=== PATIENT | male | born 1955 | race African-American/Black ===

== ENCOUNTER 2019-11-21 10:38 | Emergency (ER) | payer SELFPAY ==
--- NOTE | 2019-11-21 12:28 | EDPHYS ---
Physician Documentation [facility] Name: Lokesh Roldan Age: 64 yrs Sex: Male : 1955 Arrival Date: 11/21/2019 Time: 10:39 Bed 13 Private MD: ED Physician Laureen Castro HPI: 11/20 12:05 This 64 yrs old Black Male presents to ER via EMS with complaints of Hernia, Groin Pain.cp 12:05 The patient presents with swelling, of the right inguinal area, tenderness, that is cp moderate, of the right inguinal area. Onset: The symptoms/episode began/occurred 10 year(s) ago, and became worse yesterday. Associated signs and symptoms: Pertinent positives: abdominal pain, Pertinent negatives: dysuria, hematuria, nausea, vomiting. Historical: - Allergies: 10:40 No Known Allergies; sv - PMHx: 10:40 Hernia; Heart Murmur; sv - Immunization history:: Adult Immunizations up to date. - Social history:: Smoking status: . ROS: 12:10 Constitutional: Negative for body aches, chills, fever. cp 12:10 Cardiovascular: Negative for chest pain. cp 12:10 Respiratory: Negative for cough, shortness of breath, wheezing. 12:10 Abdomen/GI: Positive for abdominal pain, Negative for nausea, vomiting, and diarrhea. 12:10 Back: Negative for pain at rest, pain with movement. 12:10 : Positive for right scrotal swelling. 12:10 All other systems are negative. Exam: 12:12 Constitutional: The patient appears in no acute distress, alert, awake, non-toxic, well cp developed, well nourished. 12:12 Head/Face: Normocephalic, atraumatic. cp 12:12 Chest/axilla: Inspection: normal. 12:12 Cardiovascular: Rate: normal. 12:12 Respiratory: the patient does not display signs of respiratory distress, Respirations: normal, no use of accessory muscles, labored breathing, is not present. 12:12 Abdomen/GI: Inspection: abdomen appears normal, Bowel sounds: active, all quadrants, Palpation: soft, in all quadrants, mild abdominal tenderness, in the right lower quadrant and right inguinal area, Hernia: noted in the right inguinal area, incarceration, is not appreciated, tenderness, that is mild. 12:12 Skin: cellulitis, is not appreciated, no rash present. Vital Signs: 10:40 BP 136 / 82; Pulse 82; Resp 16; Temp 97.8; Pulse Ox 100% ; Height 6 ft. 2 in. (187.96 sv cm); MDM: 11:45 Patient medically screened. 12:27 Data reviewed: vital signs, nurses notes, I have discussed the patient's cp presentation/case with the attending Emergency Department Physician; and as a result, I will discharge patient. 12:27 Counseling: I had a detailed discussion with the patient and/or guardian regarding: the cp historical points, exam findings, and any diagnostic results supporting the discharge/admit diagnosis, the need for outpatient follow up, for definitive care, a general surgeon, to return to the emergency department if symptoms worsen or persist or if there are any questions or concerns that arise at home. Response to treatment: the patient's symptoms have markedly improved after treatment. ED course: Hernia reduced. Will discharge to home for continued monitoring and to f/u with general surgery. 11/20 12:26 Order name: Jason Wrap; Complete Time: 12:52 cp Administered Medications: No medications were administered Disposition: 12:40 Chart complete. Disposition: 11/21/19 12:27 Discharged to Home. Impression: Unilateral inguinal hernia, without obstruction or gangrene, recurrent - right, reduced. - Condition is Stable. - Discharge Instructions: Inguinal Hernia, Adult. - Prescriptions for Tramadol 50 mg Oral Tablet - take 1 tablet by ORAL route every 8 hours as needed; 12 tablet. - Medication Reconciliation Form, Thank You Letter, Antibiotic Education, Prescription Opioid Use, Work release form form. - Follow up: Charly Jameson MD; When: 1 - 2 days; Reason: hernia repair. - Problem is an ongoing problem. - Symptoms have improved. Signatures: Emiyl Kirkpatrick, CHIARA RN Andrew Romero PA PA Torrie Cohen RN RN ls4 Corrections: (The following items were deleted from the chart) 11:26 11:21 Physician consultation: was contacted at 11:15, regarding regarding transfer, to [facility]. consult, DR Garland, urologist, will accept patient as transfer. Wants [place] if patient unable to void at this time, 12:31 12:27 11/21/2019 12:27 Discharged to Home. Impression: Unilateral inguinal hernia, cp without obstruction or gangrene, recurrent - right. Condition is Stable. Forms are Medication Reconciliation Form, Thank You Letter, Antibiotic Education, Prescription Opioid Use. Follow up: Charly Jameson; When: 1 - 2 days; Reason: hernia repair. Problem is an ongoing problem. Symptoms have improved. cp 13:06 12:31 11/21/2019 12:27 Discharged to Home. Impression: Unilateral inguinal hernia, ls4 without obstruction or gangrene, recurrent - right, reduced. Condition is Stable. Discharge Instructions: Inguinal Hernia, Adult. Prescriptions for Tramadol 50 mg Oral Tablet - take 1 tablet by ORAL route every 8 hours as needed; 12 tablet. and Forms are Medication Reconciliation Form, Thank You Letter, Antibiotic Education, Prescription Opioid Use. Follow up: Charly Jameson; When: 1 - 2 days; Reason: hernia repair. Problem is an ongoing problem. Symptoms have improved. cp
--- NOTE | 2019-11-21 12:28 | ER ---
Nurse's Notes [facility] Name: Lokesh Roldan Age: 64 yrs Sex: Male : 1955 Arrival Date: 11/21/2019 Time: 10:39 Bed 13 Private MD: Diagnosis: Unilateral inguinal hernia, without obstruction or gangrene, recurrent-right, reduced Presentation: 11/20 10:39 Chief complaint: EMS states: right groin pain that radiates to the RLQ, hx hernia x 10 sv years. Coronavirus screen: Client denies travel out of the [place] in the last 14 days. At this time, the client does not indicate any symptoms associated with coronavirus-19. Ebola Screen: No symptoms or risks identified at this time. Risk Assessment: Do you want to hurt yourself or someone else? Patient reports no desire to harm self or others. Onset of symptoms was November 21, 2019. 10:39 Method Of Arrival: EMS: [facility] sv 10:39 Acuity: JUAN 4 sv 10:40 Initial Sepsis Screen: Does the patient meet any 2 criteria? No. Patient's initial sv sepsis screen is negative. Does the patient have a suspected source of infection? No. Patient's initial sepsis screen is negative. Triage Assessment: 10:39 General: Appears in no apparent distress. uncomfortable, slender, Behavior is calm, sv cooperative, appropriate for age. Pain: Complains of pain in right femoral area and right inguinal area. Neuro: Level of Consciousness is awake, alert, obeys commands, Oriented to person, place, time, situation, Gait is steady. Respiratory: Respiratory effort is even, unlabored. Derm: Skin is normal. Historical: - Allergies: 10:40 No Known Allergies; sv - PMHx: 10:40 Hernia; Heart Murmur; sv - Immunization history:: Adult Immunizations up to date. - Social history:: Smoking status: . Vital Signs: 10:40 BP 136 / 82; Pulse 82; Resp 16; Temp 97.8; Pulse Ox 100% ; Height 6 ft. 2 in. (187.96 sv cm); ED Course: 10:39 Patient arrived in ED. sv 10:39 Arm band placed on. sv 10:40 Triage completed. sv 11:37 Andrew Alas PA is PHCP. cp 11:37 Laureen Castro MD is Attending Physician. cp 12:26 Charly Jameson MD is Referral Physician. cp 12:52 Jason wrap to right hip and pelvis and right inguinal area and right femoral area. [email or web address] Administered Medications: No medications were administered Outcome: 12:27 Discharge ordered by . cp 13:06 Patient left the ED. ls4 Signatures: Emily Kirkpatrick, RN RN Andrew Romero, AGUILAR PA cp Thierry Woodall jp3 Torrie Cohen, CHIARA RN ls4
[2019-11-24 16:45] VITALS: BP 136/82; TEMP 97.8; O2SAT 100
== END 2019-11-21 13:06 | disposition home or self-care (01) ==
LOC: ER 10:38
DX: K40.91 Unilateral inguinal hernia, without obstruction or gangrene, recurrent (principal)
CPT/HCPCS: 99283